=== PATIENT | male | born 1965 | race Caucasian/White ===

== ENCOUNTER 2020-01-22 04:20 | Emergency (ER) | payer BC ==
[2020-01-22] MEDS ORDERED: Amoxicillin/Clavulanate K 875-125 MG Tab ONE (04:30)
[2020-01-22] MEDS ORDERED: Ketorolac 60 MG/2 ML SDV IM ONE (04:40)
--- NOTE | 2020-01-22 17:01 | ER ---
HISTORY OF PRESENT ILLNESS: A 54-year-old male here with complaints of what he thinks is an abscessed tooth on the right lower jaw. It has been bothering him for a few days, but during the night tonight it became worse. There has not been any drainage inside of his mouth. He has not had any injury to this area. He states it is the tooth that has a crown over it which is the 1st molar. He has only taken 1 dose of ibuprofen yesterday and 3 aspirin earlier during the night. OBJECTIVE: GENERAL APPEARANCE: The patient is awake and alert, slightly uncomfortable. VITAL SIGNS: Reviewed, they are normal. HEENT: The patient has mild swelling involving the right lower jaw. Mild palpation does reveal tenderness. Oral exam, the patient has swelling around the 1st molar on the right lower jaw. I do not see any pustule or drainage and I do not see any obvious injury to the tooth. DIAGNOSIS: Dental pain with questionable abscess. TREATMENT PLAN: The patient will be given Toradol 60 mg IM. I will start him on Augmentin as well. He is instructed to use Tylenol 2 extra strength alternating with 800 of ibuprofen every 3 hours with the 1st dose being Tylenol in 3 hours' time. He is to utilize a soft diet. He can apply hot packs to the external facial cheek on the right side and he is to follow up with the dentist as soon as he can get in with one. CRS/MODL /[id number]
== END 2020-01-22 04:44 | disposition home or self-care (01) ==
LOC: LB.ED 04:20
DX: K08.89 Other specified disorders of teeth and supporting structures (principal)
CPT/HCPCS: 96372; 99282; A9270; J1885